=== PATIENT | female | born 1960 | race African-American/Black ===

== ENCOUNTER 2019-03-28 13:00 | Observation (INO) | payer OTHER, SELFPAY ==
[2019-03-28] MEDS ORDERED: Acetaminophen 325 MG TAB PO PRN (14:28)
[2019-03-28] MEDS ORDERED: Zolpidem Tartrate 5 MG TAB PO PRN (14:28)
[2019-03-28] MEDS ORDERED: Senokot S 8.6-50 MG TAB PO PRN (14:28)
[2019-03-28] MEDS ORDERED: Ondansetron ODT 4 MG TAB PO PRN ×2 (14:28→16:59)
[2019-03-28] MEDS ORDERED: Ondansetron PF 4 MG/2 ML Vial IVP PRN (14:28)
[2019-03-28 14:38] LABS: Troponin I 0.011 ng/mL (< 0.028)
[2019-03-28] MEDS ORDERED: Ibuprofen 600 MG TAB PO PRN (14:38)
[2019-03-28] MEDS ORDERED: Acetaminophen 500 MG TAB ONE (14:58)
[2019-03-28 15:08] LABS: Hemoglobin A1c 5.5 % (4.0-6.0)
[2019-03-28 15:59] LABS: Folate (Folic Acid) 7.4 ng/mL (7.0-31.4)
[2019-03-28 16:46] VITALS: BMI 37.4
--- NOTE | 2019-03-28 16:55 | MRI ---
MRI BRAIN WITHOUT CONTRAST: History: Dizziness. Blurred vision. TIA. FINDINGS: Comparison is made with exam of 08-24-15. Changes of chronic small vessel ischemic disease are again seen in the periventricular white matter. No restricted diffusion is identified. The ventricular size is appropriate and the basilar cisterns p atent. No evidence of infarct, hemorrhage, midline shift or abnormal extraaxial fluid collections are seen. There is mucosal disease in the paranasal sinuses. IMPRESSION: No evidence of acute intracranial process. POS: [facility]
[2019-03-28] MEDS ORDERED: Lorazepam 1 MG TAB PO PRN (16:59)
[2019-03-28] MEDS: Sodium Chloride 0.9% 1,000 ML IV SCH (17:14)
[2019-03-28 18:27] LABS: Troponin I 0.021 ng/mL (< 0.028)
[2019-03-28] MEDS ORDERED: Topiramate 100 MG TAB PO SCH (21:00)
[2019-03-28] MEDS ORDERED: Atorvastatin Calcium 40 MG TAB PO SCH (21:00)
[2019-03-28] MEDS ORDERED: tiZANidine HCl 4 MG TAB PO SCH (21:00)
[2019-03-28] MEDS: Pregabalin 75 MG CAP PO SCH (21:41)
[2019-03-28] MEDS: Heparin 5,000 UNITS/ML VIAL SC SCH (21:42)
--- NOTE | 2019-03-28 22:49 | HP ---
ADMISSION DIAGNOSES: 1. Transient ischemic attack. 2. Syncope. 3. Dizziness. 4. Hypertension. 5. Anxiety. HISTORY OF PRESENTING ILLNESS: This is a 58-year-old black female, who suddenly started feeling dizzy, nauseated, sweating, weakness on the left side of her body with slurred speech. The patient presented to the ER outside of [facility], where she was evaluated with a CT scan of the head, that was essentially negative. The patient had similar TIA-like symptoms 3 years ago and the MRI at that time was negative. The patient was then transferred to [facility] for further evaluation and treatment. The patient was admitted under stroke protocol. At the time of my admission history taking, the patient's speech was slurred. She was struggling to find words, but when distracted and when I started speaking about other things and trying to get her past medical history, her speech was absolutely clear; there was no slurring, no forgetfulness, no confusion. PAST MEDICAL HISTORY: Significant for hypertension, anxiety, and TIA. PAST SURGICAL HISTORY: Significant for tubectomy, C-sections, carpal tunnel surgery, and some ligamental repair in her right upper extremity. ALLERGIES: THE PATIENT IS ALLERGIC TO TERE INHIBITORS AND TRAMADOL. MEDICATIONS: 1. Fluticasone spray 50 mcg one spray intranasally once a day. 2. Celecoxib 200 mg one tablet once a day. 3. Hydrochlorothiazide 12.5 mg p.o. once a day. 4. Ativan 1 mg p.o. q.6 hours p.r.n. for anxiety. 5. Tizanidine 4 mg one tablet once every night. REVIEW OF SYSTEMS: CONSTITUTIONAL: Negative for constitutional review of systems. Denies any chills or fever. Positive for sweating. HEENT: Denies any eye pain. Reports vision changes. Negative for any ears, nose, and throat review of systems. Denies any rhinorrhea, sore throat or voice changes. CARDIOVASCULAR: Negative for cardiovascular review of systems. Denies any chest pain or palpitations. RESPIRATORY: Negative for any respiratory review of systems. Denies cough, denies shortness of breath. MUSCULOSKELETAL: Negative for musculoskeletal review of systems. The patient denies any back pain. SKIN: Negative for skin review of systems. Denies any rash. Denies skin changes. NEUROLOGIC: The patient reports dizziness, slurred speech, and near-syncopal episode. PHYSICAL EXAMINATION: VITAL SIGNS: Admission blood pressure is around 114/79, pulse 84, respiratory rate 21, temperature 97.7, pain 7, and O2 sats on the room air is around 98%. CONSTITUTIONAL: Vital signs reviewed. The patient is afebrile. Pulse is normal. Blood pressure is normal. Respiratory rate is normal. HEENT: Normocephalic and atraumatic head. Eyelids are normal for inspection. Pupils are equally round and reactive to light. Extraocular muscles intact. No nystagmus. NECK: Neck examination is normal. Normal range of motion. Trachea is midline. No meningeal signs. No cervical adenopathy. No tenderness. RESPIRATORY: Respiratory and chest examination are normal. Respiratory exam includes findings of no respiratory distress. Breath sounds clear. CARDIOVASCULAR: Assessment is normal. Heart rate is regular and rhythmic, and heart sounds are normal. ABDOMEN: Soft, NT, ND, plus for bowel sounds. MUSCULOSKELETAL: Normal range of motion. No swelling. No edema. NEUROLOGIC: Neurological examination is essentially normal. Cranial nerves are intact. Motor and sensory are within normal limits. Positive for slurred speech. ASSESSMENT AND PLAN: 1. Slurred speech/weakness. Admit the patient under the stroke protocol. Obtain MRI without contrast, TSH, hemoglobin A1c, lipid panel, folic acid, and vitamin B12 levels. 2. PT, OT, ST. 3. Heart healthy diet. 4. Address the patient's anxiety. Job ID: [id number]
[2019-03-29] MEDS: Sodium Chloride 0.9% 1,000 ML IV SCH (05:28)
[2019-03-29 05:48] LABS: Anion Gap 12 mmol/L (10-20); BUN (Urea Nitrogen) 10 mg/dL (9.8-20.1); Calc. Creatinine Clearance 127 mL/min (70-130); Calcium 9.4 mg/dL (7.8-10.44); Carbon Dioxide 27 mmol/L (22-29); Cardiac Risk 5.9 (Less than 4.5); Chloride 105 mmol/L (98-107); Cholesterol 235 mg/dl (< 200 Desired); Estimated GFR-MDRD Greater than 90; Glucose 99 mg/dL (70-105); HDL Cholesterol 40 mg/dL (>60 Neg Risk); LDL Cholesterol, Calculated 161 mg/dL; Potassium 3.7 mmol/L (3.5-5.1); Sodium 140 mmol/L (136-145); Triglycerides 170 mg/dL (Less than 150)
[2019-03-29 06:10] LABS: Eosinophils 3 % (0-10); Hemoglobin 12.4 g/dL (12.0-16.0); Lymphocytes 46 % (21-51); MDiff Complete? YES; Mean Corpuscular HGB CONC 32.7 g/dL (32.0-36.0); Mean Corpuscular Hemoglobin 27.9 pg (27.0-31.0); Mean Corpuscular Volume 85.3 fL (78.0-98.0); Mean Platelet Volume 7.8 fL (7.4-10.4); Monocytes 10 % (0-10); Neutrophil 38 % (42-75); Platelet Count 264 thou/uL (130-400); RBC Distribution Width 11.9 % (11.5-14.5); Reactive Lymphocytes 3 % (0-10); Red Blood Cell (RBC) Count 4.44 mill/uL (4.20-5.40); White Blood Cell (WBC) Count 5.2 thou/uL (4.8-10.8)
[2019-03-29] MEDS: Pregabalin 75 MG CAP PO SCH (08:39)
[2019-03-29] MEDS: Heparin 5,000 UNITS/ML VIAL SC SCH (08:39)
[2019-03-29] MEDS ORDERED: Aspirin 81 mg Enteric Coated Tablet PO SCH (09:00)
[2019-03-29] MEDS ORDERED: (Fluticasone Propionate [Flovent Diskus] 50 MCG) NASAL SCH (09:00)
[2019-03-29] MEDS ORDERED: CeleCOXIB 100 MG CAP PO SCH (09:00)
[2019-03-29] MEDS ORDERED: Hydrochlorothiazide 25 MG TAB PO SCH (09:00)
--- NOTE | 2019-03-29 14:04 | PDOC.HOSPP ---
- Subjective Encounter Date: 03/29/19 Encounter Time: 14:01 Subjective: Speech is clar, no complains of any weakness, eating well - Objective Vital Signs & Weight: Vital Signs (12 hours) Temp Pulse Pulse Pulse Resp BP BP 03/29/19 11:51 97.7 F 93 16 03/29/19 10:55 85 93 108/55 L 103/69 03/29/19 07:30 97.6 F 84 16 03/29/19 04:41 03/29/19 04:00 97.9 F 82 16 BP Pulse Ox 03/29/19 11:51 103/69 99 03/29/19 10:55 03/29/19 07:30 102/63 97 03/29/19 04:41 108/66 99 03/29/19 04:00 98/60 90 L Weight Weight 204 lb 9 oz I&O: 03/28/19 03/29/19 03/30/19 06:59 06:59 06:59 Intake Total 1635 Balance 1635 Result Diagrams: 03/29/19 04:45 03/29/19 04:45 Hospitalist ROS - Medication Medications: Active Medications Generic Name Dose Route Start Last Admin Trade Name Freq PRN Reason Stop Dose Admin Aspirin 81 mg 03/29/19 09:00 03/29/19 08:38 Ecotrin PO 81 mg DAILY DUONG Administration Atorvastatin Calcium 40 mg 03/28/19 21:00 03/28/19 21:41 Lipitor PO 40 mg HS DUONG Administration Celecoxib 200 mg 03/29/19 09:00 03/29/19 08:38 Celebrex PO 200 mg DAILY DUONG Administration Heparin Sodium (Porcine) 5,000 units 03/28/19 21:00 03/29/19 08:39 Heparin SC 5,000 units BID DUONG Administration Hydrochlorothiazide 12.5 mg 03/29/19 09:00 03/29/19 08:38 Hydrochlorothiazide PO 12.5 mg DAILY DUONG Administration Sodium Chloride 1,000 mls @ 75 mls/hr 03/28/19 14:30 03/29/19 05:28 Normal Saline 0.9% IV 1,000 mls .[id number] DUONG Administration Pantoprazole Sodium 40 mg 03/29/19 09:00 03/29/19 08:39 Protonix PO 40 mg DAILY DUONG Administration Pregabalin 75 mg 03/28/19 21:00 03/29/19 08:39 Lyrica PO 75 mg BID DUONG Administration Tizanidine HCl 4 mg 03/28/19 21:00 03/28/19 21:41 Zanaflex PO 4 mg HS DUONG Administration Topiramate 50 mg 03/28/19 21:00 03/28/19 21:41 Topamax PO 50 mg HS DUONG Administration - Exam General Appearance: awake alert Eye: PERRL, anicteric sclera ENT: normocephalic atraumatic, no oropharyngeal lesions, moist mucosa Neck: supple, symmetric, no JVD, no thyromegaly, no lymphadenopathy Heart: RRR, no murmur, no gallops, no rubs Respiratory: CTAB, no wheezes, no rales, no ronchi, normal chest expansion Gastrointestinal: soft, non-tender, non-distended, normal bowel sounds, no palpable masses, no hepatomegaly Extremities: no cyanosis, no clubbing, no edema Skin: normal turgor, no lesions, no rashes Neurological: CN's grossly intact, normal sensation to touch, no weakness, no focal deficits, no new deficit Musculoskeletal: normal tone, normal strength, no muscle wasting Psychiatric: normal affect, normal behavior, A&O x 3 Hosp A/P (1) TIA (transient ischemic attack) Status: Acute (2) Hyperlipidemia Code(s): E78.5 - HYPERLIPIDEMIA, UNSPECIFIED Status: Chronic (3) Hypertension Code(s): I10 - ESSENTIAL (PRIMARY) HYPERTENSION Status: Chronic (4) Obesity (BMI 30-39.9) Code(s): E66.9 - OBESITY, UNSPECIFIED Status: Chronic - Plan PT/OT, addiction social worker, speech therapy, DVT proph w/heparin, DVT proph w/lovenox TIA Stroke work up on going CTH and MRI of brain with no acute changes Increased Cholesteroal Continue aspirin and statin TSH/ HbA1C, Folic acid and Vit B12 WNL Continue home meds for HTN, PRN meds for anxiety
[2019-03-29 16:03] VITALS: BP 116/58; TEMP 97.6
== END 2019-03-29 18:02 | disposition home or self-care (01) ==
LOC: ERS 13:00 → 2SE 13:30
PROVIDERS: ADMIT Family Medicine; ATTEND Family Medicine
DX: G45.9 Transient cerebral ischemic attack, unspecified (principal); I10 Essential (primary) hypertension; F41.9 Anxiety disorder, unspecified; E78.5 Hyperlipidemia, unspecified; G47.30 Sleep apnea, unspecified; K21.9 Gastro-esophageal reflux disease without esophagitis; K58.9 Irritable bowel syndrome, unspecified; M19.90 Unspecified osteoarthritis, unspecified site; G43.909 Migraine, unspecified, not intractable, without status migrainosus; J45.909 Unspecified asthma, uncomplicated; E66.9 Obesity, unspecified; Z68.37 Body mass index [BMI] 37.0-37.9, adult; Z79.899 Other long term (current) drug therapy; Z88.5 Allergy status to narcotic agent; Z88.8 Allergy status to other drugs, medicaments and biological substances
CPT/HCPCS: 36415; 70551; 80048; 80061; 82607; 82746; 83036; 84443; 84484; 85007; 85027; 93306; 96360; 96361; G0378; J1644

== ENCOUNTER 2019-05-25 11:53 | Outpatient (CLI) | payer BC ==
--- NOTE | 2019-05-25 13:05 | ULT ---
BILATERAL CAROTID DUPLEX ULTRASOUND: HISTORY: Migraine headache. TECHNIQUE: June-scale ultrasound with color-flow and spectral Doppler imaging of the extracranial carotid artery systems is performed bilaterally. FINDINGS: No significant intimal wall thickening or plaque formation is seen on either side. The peak systolic velocity in the right ICA measures 61 cm per second with an end-diastolic velocity of 24 cm per second and a systolic ratio of 0.71. The peak systolic velocity in the left ICA measures 58 cm per second with an end-diastolic velocity o f 13 cm per second and a systolic ratio of 0.61. Flow in both vertebral arteries remains antegrade. IMPRESSION: No evidence of hemodynamically significant stenosis in either internal carotid artery. POS: [facility]
== END 2019-05-25 11:54 | disposition home or self-care (01) ==
LOC: ULT 11:53
PROVIDERS: ATTEND Psychiatry & Neurology Neurology
DX: G43.109 Migraine with aura, not intractable, without status migrainosus (principal)
CPT/HCPCS: 93880